=== PATIENT | female | born 1975 | race Two or more races ===

== ENCOUNTER → 2024-04-29 | Outpatient (CLI) | payer MEDICAID, SELFPAY ==
--- NOTE | 2024-04-29 15:45 | XR_ITS ---
Examination: Breast ultrasound, unilateral, right complete Date and time of exam: April 29, 2024 1600 hours INDICATIONS: Family history breast cancer, history palpable lump right breast Technique: Real-time presley scale ultrasonographic imaging performed right breast including all 4 quadrants as well as nipple retroareolar and axillary region. Findings: No cystic or solid mass IMPRESSION: BI-RADS Category 1: Negative study
== END | disposition home or self-care (01) ==
LOC: CDIM 15:38
PROVIDERS: Referring Provider Specialist; Visit Provider Specialist
DX: R92.0 Mammographic microcalcification found on diagnostic imaging of breast (principal); Z80.3 Family history of malignant neoplasm of breast
CPT/HCPCS: 76641

== ENCOUNTER → 2024-06-17 | Outpatient (CLI) | payer MEDICAID, SELFPAY ==
--- NOTE | 2024-06-17 13:45 | XR_ITS ---
Examination: Breast ultrasound, unilateral, left complete Date and time of exam: June 17, 2024 1401 hours INDICATIONS: Palpable lumps on clinical breast examination by physician several months ago, diagnosis cystic mastopathy Technique: Real-time presley scale ultrasonographic imaging performed left breast including all 4 quadrants as well as nipple retroareolar and axillary region. Findings: 5:00 cyst 5 x 5 mm No solid nodules IMPRESSION: BI-RADS Category 2: Benign findings
== END | disposition home or self-care (01) ==
PROVIDERS: PCP Specialist; Referring Provider Specialist; Visit Provider Specialist
DX: N60.02 Solitary cyst of left breast (principal)
CPT/HCPCS: 76641